=== PATIENT | male | born 1990 | race Caucasian/White ===

== ENCOUNTER 2016-10-14 15:27 | Inpatient (IN) | payer BC ==
--- NOTE | ~2016-10-14 | DS ---
Unit #: [id number] #: [id number] Patient: KEL SANTIAGO [id number] [facility] [address] [place] [address] [id number] I MR#: [id number] NAME: KEL SANTIAGO. ROOM: P185 Age: 26 Sex: M Admission Date: 10/14/2016 : 1990 Discharge Date: 10/17/2016 Attending Physician: Juan Ramon Godoy M.D. DISCHARGE SUMMARY REASON FOR ADMISSION The patient is a 26-year-old white male, admitted from [facility] after an ingestion of Risperdal, trazodone, hydroxyzine and Zoloft. HOSPITAL COURSE The patient was admitted to the [facility] unit and placed on suicide precautions. He was generally pleasant and cooperative, and expressed appropriate contrition over the ensuing hospitalization. Upon admission to the hospital, he was watched for any signs of alcohol withdrawal, but exhibited none. He was continued on previously prescribed Remeron 15 mg at h.s., medication which had been prescribed in [place], [place] and was also started on Vistaril 50 mg q.6 hours p.r.n. anxiety. By 10/16/2016, the patient continued to deny suicidal ideation. He was bright, pleasant, cooperative in his interactions with peers and staff. He requested discharge to take place the following day with transport to take place to [place], [place]. Discharge was ordered. FINAL DIAGNOSES Dysthymic disorder, adjustment disorder, depressed mood. DISPOSITION ON DISCHARGE The patient was discharged on the following medications; Remeron 15 mg h.s. for depression, Vistaril 50 mg q.6 hours p.r.n. anxiety. DISCHARGE INSTRUCTIONS No dietary or physical restrictions were placed on the patient at the time of discharge. FOLLOWUP Followup will take place through the auspices of community mental health resources in the [place], [place] area. PROGNOSIS The patient's prognosis is considered fair. Dictated by... Juan Ramon Godoy M.D. JW/sofy TD: 10/16/2016 22:26 Unit #: [id number] #: [id number] Patient: KEL SANTIAGO JOB #: [id number] DISCHARGE SUMMARY Page 1 of 1 X Juan Ramon Godoy MD DISCHARGE SUMMARY
--- NOTE | ~2016-10-14 | HP ---
Unit #: [id number] #: [id number] Patient: ADRYAN SANTIAGO [id number] [place] [address] [id number] MR#: [id number] NAME: ADRYAN SANTIAGO. ROOM: P185 Age: 26 Sex: M Admission Date: 10/14/2016 : 1990 Attending Physician: Juan Ramon Godoy M.D. Admitting Physician: Juan Ramon Godoy M.D. HISTORY AND PHYSICAL HISTORY OF PRESENT ILLNESS Adryan is a 26-year-old admitted to [facility] with depression after alleged overdose of Risperdal, trazodone, hydroxyzine and Zoloft. He was medically cleared in a local emergency room and then transferred to [facility] for psychiatric care. PAST MEDICAL HISTORY Nothing significant. PAST SURGICAL HISTORY Nothing reported. ALLERGIES Penicillin. SOCIAL HISTORY Smokes 1 pack per day. Denies alcohol. Admits to smoking marijuana and methamphetamine on a regular basis. FAMILY HISTORY Medically noncontributory. REVIEW OF SYSTEMS CONSTITUTIONAL: No fever or chills. HEENT: Denies any sore throat, ear pain or runny nose. CARDIOVASCULAR: Denies chest pain, irregular heart rhythm or palpitations. CHEST: Denies shortness of breath or cough. No hemoptysis. GASTROINTESTINAL: Denies nausea, vomiting, diarrhea or chronic constipation. ENDOCRINE: Denies history of increased thirst or urination. No recent significant weight loss or gain. GENITOURINARY: Denies dysuria, frequency, or hematuria. SKIN: Denies any rashes. HEMATOLOGIC: Denies history of increased bleeding or bruising. MUSCULOSKELETAL: Denies any hot, swollen joints. No generalized muscle pain. NEUROLOGIC: Denies problems with vision or speech. No frequent, severe headaches. No numbness, tingling or weakness in any extremities. Denies loss of bladder or bowel control. CURRENT MEDICATIONS 1. Remeron 15 mg at bedtime 2. Milk of Magnesia p.r.n. Unit #: [id number] #: [id number] Patient: ADRYAN SANTIAGO 3. Maalox p.r.n. 4. Tylenol p.r.n. 5. Nicotine patch 14 mg daily PHYSICAL EXAMINATION GENERAL: Alert, well-nourished, no apparent distress. VITAL SIGNS: Blood pressure 100/50, heart rate 66, respirations 16, temperature 98.6. WEIGHT: 175. HEIGHT: 5 feet 9 inches. SKIN: Warm and dry without rash or lesion. HEENT: Normocephalic. TMs not viewed. Oral and nasal passages clear. Conjunctivae clear. PERRLA. EOMs intact. NECK: Supple without lymphadenopathy or thyromegaly. HEART: Regular rate and rhythm without murmur. LUNGS: Clear. ABDOMEN: Soft, nontender. : Not done. EXTREMITIES: No evidence of cyanosis, clubbing or edema. Moves all without focal deficit. NEUROLOGICAL: Grossly within normal limits. Cranial Nerves: II: Visual tovar are intact. III, IV AND : Extraocular movements are intact. Pupils are equal, round and reactive to light. V: Facial sensation is grossly normal. VII: Facial movements and expression are normal. VIII: Auditory acuity grossly intact. IX, X: Uvula is midline. Phonation is normal. XI: Patient shrugs shoulders and turns head normally. XII: Tongue protrudes in the midline. Sensory and Motor Function: Sensory and motor sensation is grossly normal. Motor: moves all extremities well. Coordination: Gait is normal. Deep Tendon Reflexes: Intact. MEDICAL ASSESSMENT AND PLAN Psychiatric admission. RECOMMENDATIONS 1. Psychiatric, per psychiatrist. 2. Medical, I see no contraindications to participating in facility's activities. MEDICAL PROGNOSIS Good. MEDICAL CONDITION Stable. Dictated by... Stephen Gonzalez/grupo TD: 10/15/2016 19:55 JOB #: [id number] Unit #: [id number] #: [id number] Patient: ADRYAN SANTIAGO HISTORY AND PHYSICAL Page 1 of 1 X Meagan Keller HISTORY AND PHYSICAL
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
[2016-10-15 12:29] LABS: BASOPHIL# 0.1 X10e3 (0-0.3); BASOPHIL% 0.7 % (0-2.5); EOSINOPHIL# 0.2 X10e3 (0-0.7); EOSINOPHIL% 2.5 % (0.0-7.0); HEMATOCRIT 46.3 % (38.0-50.0); HEMOGLOBIN 15.2 gm/dL (13.0-16.0); LYMPHOCYTE# 2.2 X10e3 (1.0-3.5); LYMPHOCYTE% 27.4 % (17.0-45.0); MEAN CELL VOLUME 89.2 FL (83-96); MEAN CORPUSCULAR HEMOGLOBIN 29.3 PG (28-34); MEAN CORPUSCULAR HGB CONC 32.8 g/dL (30-36); MEAN PLATELET VOLUME 8.1 FL (6.5-11.5); MONOCYTE# 0.9 X10e3 (0-1.0); MONOCYTE% 10.5 % (3.0-12.0); NEUTROPHIL# 4.8 X10e3 (1.5-7.1); NEUTROPHIL% 58.9 % (40-75); PLATELET COUNT 280 X10e3 (140-420); RED BLOOD COUNT 5.19 X10e (3.90-5.60); RED CELL DISTRIBUTION WIDTH 13.4 % (11.0-15.5); WHITE BLOOD COUNT 8.1 X10e3 (4.0-10.5)
[2016-10-15 12:39] LABS: DIFF IND NO
[2016-10-15 12:52] LABS: THYROID STIMULATING HORMONE 1.11 uIU/ml (0.34-5.60)
[2016-10-15 12:59] LABS: ALBUMIN SERUM 3.6 g/dL (3.5-5.0); BILIRUBIN,TOTAL 0.4 mg/dL (0.2-2.0); BUN/CREATININE RATIO 17.14; CALCIUM SERUM 9.3 mg/dL (8.4-10.2); CREATININE SERUM 0.7 mg/dL (0.6-1.4); FREE THYROXIN (T4) 0.78 ng/dL (0.58-1.64); GLOM FILT RATE Estimated 132.1 mL/min (>60); POTASSIUM 4.4 mmol/L (3.5-5.1); PROTEIN TOTAL SERUM 6.1 g/dL (6.0-8.3)
[2016-10-16 12:49] LABS: URINE APPEARANCE CLEAR; URINE BILIRUBIN NEG (NEG); URINE BLOOD NEG (NEG); URINE COLOR YELLOW; URINE GLUCOSE NEG (NEG); URINE KETONE NEG (NEG); URINE LEUKOCYTE ESTERASE NEG (NEG); URINE NITRATE NEG (NEG); URINE PROTEIN NEG (NEG); URINE SPECIFIC GRAVITY 1.013 (1.003-1.035); URINE UROBILINOGEN 0.2 MG/DL (NEG)
[2016-10-16 13:15] LABS: AMPHETAMINE NEG (NEG); BARBITURATES NEG (NEG); BENZODIAZEPINES POS (NEG); COCAINE NEG (NEG); MARIJUANA POS (NEG); OPIATES NEG (NEG); TRICYCLIC ANTIDEPRESSANTS NEG (NEG); U METHADONE NEG (NEG)
== END 2016-10-17 08:48 | disposition home or self-care (01) | DRG 881 ==
LOC: P1E 15:27
PROVIDERS: Specialist
DX: F43.21 Adjustment disorder with depressed mood (principal); F31.9 Bipolar disorder, unspecified; F17.210 Nicotine dependence, cigarettes, uncomplicated; F41.9 Anxiety disorder, unspecified; T43.592A Poisoning by other antipsychotics and neuroleptics, intentional self-harm, initial encounter; T43.212A Poisoning by selective serotonin and norepinephrine reuptake inhibitors, intentional self-harm, initial encounter; T43.222A Poisoning by selective serotonin reuptake inhibitors, intentional self-harm, initial encounter; F34.1 Dysthymic disorder
CPT/HCPCS: 80053; 80307; 81003; 84439; 84443; 85025